=== PATIENT | male | born 2000 | race Caucasian/White ===

== ENCOUNTER 2022-08-08 00:46 | Observation (INO) ==
--- NOTE | 2022-08-08 01:14 | Emergency Department Note ---
ED Provider Note CHIEF COMPLAINT: Altered mental status from possible alcohol overdose HISTORY OF PRESENT ILLNESS: This [] patient presents to the emergency department via triage for evaluation of altered mental status, presumably from alcohol intoxication. The patient arrives through REVIEW OF SYSTEMS: Review of systems was limited secondary to patient's altered status. Review of systems was performed to the best of our ability and fully performed as the patient began returned to baseline. 10 system were ultimately reviewed and are negative unless otherwise noted. ALLERGIES: See EMR MEDICATIONS: See EMR PMH: [] SOCIAL HISTORY: [] PHYSICAL EXAM VITALS: Vitals are noted on the nurse's note and reviewed by myself. Vital signs stable. GENERAL: [], who is in no acute distress and resting comfortably. Patient is visibly altered and smells of alcohol. HEAD: Normocephalic atraumatic. EARS: External ear normal. External auditory canals clear, tympanic membranes pearly lal without erythema or effusion bilaterally. No hemotympanum EYES: Pupils equal round and reactive to light and accommodation. Conjunctivae with scant injection. EOMI intact spontaneously NOSE: Patent, turbinates without inflammation or discharge. MOUTH: Mucous membranes moist. Tonsils are not enlarged. Pharynx without erythema, blood, vomitus, or exudate. Uvula midline. Airway patent. NECK: Supple without nuchal rigidity. No lymphadenopathy. Cervical spine is nontender. HEART: Regular rate and rhythm without murmurs gallops or rubs. LUNGS: Clear to auscultation bilaterally without wheezes, rales or rhonchi. No retractions or accessory muscle use. ABDOMEN: Positive normal bowel sounds x 4. Soft, nontender, without masses or organomegaly. No guarding or rebound tenderness. MUSCULOSKELETAL: No muscle atrophy, erythema, or edema noted. Gross motor function intact to all extremities. NEURO: Patient was alert to person but not place or time. They appear with altered mental status. SKIN: The skin was without rashes, erythema, edema, or bruising. No tenting of the skin. EMERGENCY DEPARTMENT COURSE: Physical exam and history was performed. Nursing notes and EMR were reviewed. The patient appears to be altered on my examination. I suspect this is from an alcohol overdose. Conservative care measures and aspiration precautions were instituted. The patient was placed in a prone position. An order was placed for continuous cardiac monitoring. The monitor shows a rate of [] with [] rhythm. Blood work was obtained and was reviewed. The patient's blood alcohol level was []. This appears to be the primary cause of the altered status. Remaining blood work is nondiagnostic. Patient was reevaluated multiple times throughout the course of their emergency department stay. Over time the patient did sober up and was able to talk, walk, and drink fluids without difficulty. The patient was felt stable for discharge home. The patient was given alcohol intoxication handouts. The patient was discharged home in stable condition with []. Differential diagnosis: Etiologies such as alcohol intoxication, metabolic, infection, hypoglycemia, electrolyte abnormalities, cardiac sources, intracerebral event, toxicologic, neurologic, as well as others were entertained. DIAGNOSIS: Alcohol use with intoxication Past Med/Surg History Social History Smoking Status: Unknown if ever smoked Feels Safe at Home: Declines to Answer Results & Data (ED) Vital Signs Vital Signs - 24 hr 08/08/22 00:57 08/08/22 01:06 Temperature 36.5 C Temperature Source Temporal Artery Scan Pulse Rate 69 Pulse Rhythm Regular Pulse Strength Normal Respiratory Rate 12 Respiratory Effort / Characteristics Spontaneous Respiratory Depth Deep Blood Pressure 114/62 Blood Pressure Mean 79 Pulse Oximetry 97 95 Oxygen Delivery Method Room Air Room Air Sepsis Recent Fever Within 48 Hours No Sepsis New/Unexplained Change in Mental Status N/A Sepsis Action Taken by Nursing No Action Required Laboratory Data Result diagrams: 08/08/22 01:01 Discharge Plan Visit Data Chief Complaint: Alcohol Intoxication Stated Complaint: ETOH ED Provider: Hilary Miramontes ED Midlevel Provider: Tal Jennings Forms Stand Alone Forms: [facility], [facility] Referrals Referrals: PCP,NO [Primary Care Provider] -
[2022-08-08 01:27] LABS: Albumin Globulin Ratio 2.5 (0.9-2); Albumin Level 4.7 gm/dl (3.4-5.0); BUN Creatinine Ratio 20.5 (10-20); Bilirubin,Total 0.4 mg/dl (0.2-1.0); Creatinine Clr Calc Pharmacy 20.8 ml/min; Est GFR (African American) 72.2 ml/min; Est GFR (Non-African American) 62.3 ml/min; Globulin 1.9 gm/dl (2.5-4.0); Potassium 3.2 mmol/L (3.5-5.1); Total Protein 6.6 gm/dl (6.0-8.3)
[2022-08-08] MEDS ORDERED: LACTATED RINGER'S 1,000 ML IV ONE ×2 (02:15→04:30)
[2022-08-08 02:23] LABS: Basophils # (auto) 0.08 K/uL (0-0.2); Basophils % (auto) 0.9 %; Eosinophils # (auto) 0.16 K/uL (0-0.50); Eosinophils % (auto) 1.8 %; Hematocrit (blood only) 45.3 % (40.1-51.0); Hemoglobin 15.7 g/dl (14.0-18.0); Immature Granulocytes # (auto) 0.04 K/uL (0.00-0.02); Immature Granulocytes % (auto) 0.5 %; Lymphocytes # (auto) 1.77 K/uL (1.2-3.4); Mean Corpuscular Hemoglobin 29.7 pg (25.0-34.0); Mean Corpuscular Hgb Conc 34.7 g/dL (32.0-36.0); Mean Corpuscular Volume 85.8 fL (80.0-100.0); Mean Platelet Volume 11.7 fL (9.4-12.4); Monocytes % (auto) 7.9 %; Neutrophils # (auto) 6.08 K/uL (1.4-6.5); Neutrophils % (auto) 68.9 %; Platelet Count 204 K/uL (130-400); RDW Coefficient of Variation 12.4 % (11.5-14.5); RDW Standard Deviation 38.7 fL (36.4-46.3); Red Blood Count 5.28 M/uL (4.63-6.08); White Blood Count 8.83 K/ul (4.8-10.8)
--- NOTE | 2022-08-08 02:23 | Emergency Department Note ---
History of Present Illness General Chief complaint: Alcohol Intoxication Stated complaint: ETOH Time Seen by Provider: 08/08/22 00:56 History of Present Illness This is a male patient of unknown age presenting to the emergency department through triage for evaluation of altered mental status and likely alcohol i ntoxication. The patient reportedly made it to triage with friends who reported that he drank 1/5 of vodka just prior to coming to the ER. The patient had several episodes of vomiting at home and is vomiting in triage. The friends did not provide any additional information other than the patient's name before leaving. Patient himself is completely obtunded and unable to answer questions. He is essentially a "Deep [place]" at this point. There is no report of injury or trauma. Home Medications Medication Instructions Recorded Confirmed Type Unobtainable 08/08/22 08/08/22 History Allergies Allergy/AdvReac Type Severity Reaction Status Date / Time No Known Allergies Allergy Verified 08/08/22 06:19 Past Med/Surg History Medical History Medical history unknown Surgical History Surgical history unknown Social History Smoking Status: Unknown if ever smoked Hx Alcohol Use: Yes Alcohol type: hard liquor Preferred Language: Yemeni Communication Ability: Effective Cessation Systems Outreach Specialist Required: No Beliefs That Will Affect Care: None Feels Safe at Home: Yes Safety Concerns: Feels Safe At This Time Assistive Devices: None Review of Systems Unobtainable due to cognitive status Physical Exam Vital Signs Vital Signs - 24 hr 08/08/22 00:57 08/08/22 01:06 08/08/22 01:57 Temperature 36.5 C Temperature Source Temporal Artery Scan Pulse Rate 69 Pulse Rate [Finger] 90 Pulse Rhythm Regular Pulse Rhythm [Finger] Regular Pulse Strength Normal Pulse Strength [Finger] Normal Respiratory Rate 12 21 Respiratory Effort / Characteristics Spontaneous Non-Labored Spontaneous Respiratory Depth Deep Normal Blood Pressure 114/62 Blood Pressure [Left Arm] 111/51 L Blood Pressure Mean 79 Blood Pressure Mean [Left Arm] 71 Pulse Oximetry 97 95 96 Oxygen Delivery Method Room Air Room Air Room Air Sepsis Recent Fever Within 48 Hours No Sepsis New/Unexplained Change in Mental Status N/A Sepsis Action Taken by Nursing No Action Required VITALS: Vitals are noted on the nurse's note and reviewed by myself. Vital signs stable. GENERAL: Well-developed, well-nourished, white male who is completely obtunded and unable to answer any questions HEAD: Normocephalic atraumatic. EARS: External ear normal. External auditory canals clear, tympanic membranes pearly lal without erythema or effusion bilaterally. EYES: Pupils equal round and reactive to light and accommodation. Conjunctivae without injection, sclerae without icterus. NOSE: Patent, turbinates without inflammation or discharge. MOUTH: Mucous membranes moist. Tonsils are not enlarged. Pharynx without erythema, blood, or exudate. Uvula midline. Airway patent. NECK: Supple without nuchal rigidity. No lymphadenopathy. No thyromegaly. Cervical spine is nontender. HEART: Regular rate and rhythm without murmurs gallops or rubs. LUNGS: Clear to auscultation bilaterally without wheezes, rales or rhonchi. No retractions or accessory muscle use. ABDOMEN: Positive normal bowel sounds x 4. MUSCULOSKELETAL: No muscle atrophy, erythema, or edema noted. No bruising or outward signs of trauma. NEURO: Patient was obtunded and unable to answer any questions. He does not re spond to painful stimuli. Course Administered Medications Lactated Ringer's (Lr) 1,000 mls @ 100 mls/hr IV .Q10H ONE Stop: 08/08/22 14:29 Last Admin: 08/08/22 05:35 Dose: 100 mls/hr Documented By: [id number] Discontinued Medications Lactated Ringer's (Lr) 1,000 mls @ 500 mls/hr IV .Q2H ONE Stop: 08/08/22 04:14 Last Infusion: 08/08/22 05:14 Dose: 0 mls/hr Documented By: [id number] Admin: 08/08/22 02:30 Dose: 500 mls/hr Documented By: [email or web address] Thiamine HCl 100 mg/ Syringe 10 mls @ 2 mls/min IV NOW ONE Stop: 08/08/22 02:34 Last Admin: 08/08/22 02:53 Dose: 2 mls/min Documented By: [email or web address] Potassium Chloride (K Nate / Wtr) 10 meq in 100 mls @ 100 mls/hr IV Q1H IVIS; Protocol Stop: 08/08/22 04:59 Last Infusion: 08/08/22 06:42 Dose: 0 mls/hr Documented By: [id number] Admin: 08/08/22 05:35 Dose: 100 mls/hr Documented By: [id number] Infusion: 08/08/22 04:00 Dose: 100 mls/hr Documented By: [id number] Admin: 08/08/22 03:00 Dose: 100 mls/hr Documented By: NIKKY Medical Decision Making Differential Diagnosis Differential diagnosis: Etiologies such as alcohol intoxication, toxicological, infection, hypoglycemia, electrolyte abnormalities, cardiac sources, intracerebral event, neurologic, as well as others were entertained. Laboratory Data Result diagrams: 08/08/22 01:01 08/08/22 01:01 Lab Results 08/08/22 08/08/22 08/08/22 Range/Units 01:01 01:01 01:01 WBC 8.83 (4.8-10.8) K/ul RBC 5.28 (4.63-6.08) M/uL Hgb 15.7 (14.0-18.0) g/dl Hct 45.3 (40.1-51.0) % MCV 85.8 (80.0-100.0) fL MCH 29.7 (25.0-34.0) pg MCHC 34.7 (32.0-36.0) g/dL RDW Std Deviation 38.7 (36.4-46.3) fL RDW Coeff of Carmelina 12.4 (11.5-14.5) % Plt Count 204 (130-400) K/uL MPV 11.7 (9.4-12.4) fL Immature Gran % (Auto) 0.5 % Neut % (Auto) 68.9 % Lymph % (Auto) 20.0 % [place] % (Auto) 7.9 % Eos % (Auto) 1.8 % Baso % (Auto) 0.9 % Neut # (Auto) 6.08 (1.4-6.5) K/uL Lymph # (Auto) 1.77 (1.2-3.4) K/uL [place] # (Auto) 0.70 (0.24-0.82) K/uL Eos # (Auto) 0.16 (0-0.50) K/uL Baso # (Auto) 0.08 (0-0.2) K/uL Immature Gran # (Auto) 0.04 H (0.00-0.02) K/uL Sodium 135 L (136-145) mmol/L Potassium 3.2 L (3.5-5.1) mmol/L Chloride 103 (98-107) mmol/L Carbon Dioxide 20 L (21-32) mmol/L Anion Gap 12 H (3-11) BUN 17 (6-23) mg/dl Creatinine 0.83 (0.6-1.4) mg/dl Est Cr Clr Drug Dosing 20.8 ml/min Est GFR ( Amer) 72.2 ml/min Est GFR (Non-Af Amer) 62.3 ml/min BUN/Creatinine Ratio 20.5 H (10-20) Glucose 139 H (70-99(Fasting)) mg/dl Estimat Average Glucose mg/dl Hemoglobin A1c (4.5-5.6) % Calcium 9.0 (8.5-10.1) mg/dl Magnesium 2.1 (1.7-2.4) mg/dl Total Bilirubin 0.4 (0.2-1.0) mg/dl AST 19 (13-39) U/L ALT 30 (7-52) U/L Alkaline Phosphatase 98 (34-104) U/L Total Protein 6.6 (6.0-8.3) gm/dl Albumin 4.7 (3.4-5.0) gm/dl Globulin 1.9 L (2.5-4.0) gm/dl Albumin/Globulin Ratio 2.5 H (0.9-2) Ethyl Alcohol mg/dL 442.3 H (<10.0) mg/dl SARS-CoV-2, RNA, NAAT (NEGATIVE) 08/08/22 08/08/22 Range/Units 01:01 02:17 WBC (4.8-10.8) K/ul RBC (4.63-6.08) M/uL Hgb (14.0-18.0) g/dl Hct (40.1-51.0) % MCV (80.0-100.0) fL MCH (25.0-34.0) pg MCHC (32.0-36.0) g/dL RDW Std Deviation (36.4-46.3) fL RDW Coeff of Carmelina (11.5-14.5) % Plt Count (130-400) K/uL MPV (9.4-12.4) fL Immature Gran % (Auto) % Neut % (Auto) % Lymph % (Auto) % [place] % (Auto) % Eos % (Auto) % Baso % (Auto) % Neut # (Auto) (1.4-6.5) K/uL Lymph # (Auto) (1.2-3.4) K/uL [place] # (Auto) (0.24-0.82) K/uL Eos # (Auto) (0-0.50) K/uL Baso # (Auto) (0-0.2) K/uL Immature Gran # (Auto) (0.00-0.02) K/uL Sodium (136-145) mmol/L Potassium (3.5-5.1) mmol/L Chloride (98-107) mmol/L Carbon Dioxide (21-32) mmol/L Anion Gap (3-11) BUN (6-23) mg/dl Creatinine (0.6-1.4) mg/dl Est Cr Clr Drug Dosing ml/min Est GFR ( Amer) ml/min Est GFR (Non-Af Amer) ml/min BUN/Creatinine Ratio (10-20) Glucose (70-99(Fasting)) mg/dl Estimat Average Glucose 105 mg/dl Hemoglobin A1c 5.3 (4.5-5.6) % Calcium (8.5-10.1) mg/dl Magnesium (1.7-2.4) mg/dl Total Bilirubin (0.2-1.0) mg/dl AST (13-39) U/L ALT (7-52) U/L Alkaline Phosphatase (34-104) U/L Total Protein (6.0-8.3) gm/dl Albumin (3.4-5.0) gm/dl Globulin (2.5-4.0) gm/dl Albumin/Globulin Ratio (0.9-2) Ethyl Alcohol mg/dL (<10.0) mg/dl SARS-CoV-2, RNA, NAAT NEGATIVE (NEGATIVE) MDM Narrative Physical exam and history were performed. Nursing notes, EMR, and Medication List were personally reviewed. Patient appears to have altered mental status on presentation. History is significantly limited secondary to the patient's status. He was vomiting actively in triage, and there was report of alcohol use tonight. IV access was established and labs were obtained. Patient was cared for under aspiration pr ecautions. Patient's blood work is as above and was reviewed. He does not have a significantly elevated white blood cell count. He is slightly hypokalemic and hyperglycemic. His alcohol is significantly elevated at 442, which is likely the cause of his altered mental status. Out of concern for the patient's wellbeing the case was discussed with the on- call hospitalist team. Please see their dictation for further patient course, plan, and disposition. The chart was completed utilizing [employer] Speech Voice Recognition Software. Grammatical errors, random word insertions, pronoun errors, and incomplete sentences are an occasional consequence of this system due to software limitations, ambient noise, and hardware issues. Any formal questions or concerns about the content, text, or information contained within the body of this dictation should be directly addressed to the provider for clarification. . Impression & Plan Altered mental status, Alcohol use with intoxication, Vomiting, Hyperglycemia Discharge Plan Visit Data Chief Complaint: Alcohol Intoxication Stated Complaint: ETOH ED Provider: Hilary Miramontes ED Midlevel Provider: Tal Jennings Discharge Problem: Altered mental status, Alcohol use with intoxication, Vomiting, Hyperglycemia Patient Disposition: Admitted As Inpatient
[2022-08-08 02:28] LABS: Magnesium 2.1 mg/dl (1.7-2.4)
[2022-08-08] MEDS ORDERED: THIAMINE HCL 100 MG in SYRINGE 9 ML IV ONE (02:30)
--- NOTE | 2022-08-08 02:38 | History & Physical Report ---
Date of Service August 08, 2022 Assessment & Plan (1) Alcohol intoxication: Plan: Hypokalemia secondary to emesis Hyperglycemia rule out DM Medical telemetry IVF Replace potassium recheck blood alcohol level Monitor patient until sober Obtain patient demographics and evaluate for alcohol use disorder once patient awake Check hemoglobin A1c DVT prophylaxis. SCDs Full code Text document was generated using [employer] voice recognition software. It may contain grammatical or spelling errors. Kindly contact undersigned for clarification of any documentation item in question. History of Present Illness Chief Complaint: Alcohol intoxication Primary Care Provider: NO PCP History obtained from ER provider and records. Unable to obtain history from patient secondary to obtunded state. Patient brought by friends to the ER for alcohol intoxication. Patient reportedly vomiting upon arrival at the ER. Patient currently obtunded. Medical History as above Surgical History/Family History/Personal/Social history : Could not be obtained secondary to obtunded state Allergies Allergy/AdvReac Type Severity Reaction Status Date / Time Unable to Assess Allergy Unverified 08/08/22 02:36 Home Medications Medication Instructions Recorded Confirmed Type Unobtainable 08/08/22 08/08/22 History Past Med/Surg History Medical History Medical history unknown Surgical History Surgical history unknown Social History Smoking Status: Unknown if ever smoked Feels Safe at Home: Declines to Answer Review of Systems Review of Systems: Could not be reliably obtained secondary to intoxicated state Physical Exam Physical Exam: GENERAL: Obtunded, prone position SKIN: Normal color, warm HEENT: [place] palpebral conjunctivae, no ptosis, dry buccal mucosa NECK : Supple, no tenderness CHEST : CTA, no tenderness HEART : RRR, no obvious murmurs ABDOMEN: no distention, nontender EXTREMITIES : No LE swelling/tenderness, no other conspicuous deformities noted NEUROLOGIC : Obtunded, no facial asymmetry, gait and stance not assessed Results & Data Results & Data ([facility]) Vital Signs (Past 12 Hours) Vital Signs Temp Pulse Pulse Resp BP BP Pulse Ox 08/08/22 01:57 90 21 111/51 L 96 08/08/22 01:06 95 08/08/22 00:57 36.5 C 69 12 114/62 97 O2 Del Method 08/08/22 01:57 Room Air 08/08/22 01:06 Room Air 08/08/22 00:57 Room Air Laboratory Results Laboratory Results WBC 8.83 K/ul (4.8-10.8) 08/08/22 01:01 RBC 5.28 M/uL (4.63-6.08) 08/08/22 01:01 Hgb 15.7 g/dl (14.0-18.0) 08/08/22 01:01 Hct 45.3 % (40.1-51.0) 08/08/22 01:01 MCV 85.8 fL (80.0-100.0) 08/08/22 01:01 MCH 29.7 pg (25.0-34.0) 08/08/22 01:01 MCHC 34.7 g/dL (32.0-36.0) 08/08/22 01:01 RDW Std Deviation 38.7 fL (36.4-46.3) 08/08/22 01:01 RDW Coeff of Carmelina 12.4 % (11.5-14.5) 08/08/22 01:01 Plt Count 204 K/uL (130-400) 08/08/22 01:01 MPV 11.7 fL (9.4-12.4) 08/08/22 01:01 Immature Gran % (Auto) 0.5 % 08/08/22 01:01 Neut % (Auto) 68.9 % 08/08/22 01:01 Lymph % (Auto) 20.0 % 08/08/22 01:01 [place] % (Auto) 7.9 % 08/08/22 01:01 Eos % (Auto) 1.8 % 08/08/22 01:01 Baso % (Auto) 0.9 % 08/08/22 01:01 Neut # (Auto) 6.08 K/uL (1.4-6.5) 08/08/22 01:01 Lymph # (Auto) 1.77 K/uL (1.2-3.4) 08/08/22 01:01 [place] # (Auto) 0.70 K/uL (0.24-0.82) 08/08/22 01:01 Eos # (Auto) 0.16 K/uL (0-0.50) 08/08/22 01:01 Baso # (Auto) 0.08 K/uL (0-0.2) 08/08/22 01:01 Immature Gran # (Auto) 0.04 K/uL (0.00-0.02) H 08/08/22 01:01 Sodium 135 mmol/L (136-145) L 08/08/22 01:01 Potassium 3.2 mmol/L (3.5-5.1) L 08/08/22 01:01 Chloride 103 mmol/L (98-107) 08/08/22 01:01 Carbon Dioxide 20 mmol/L (21-32) L 08/08/22 01:01 Anion Gap 12 (3-11) H 08/08/22 01:01 BUN 17 mg/dl (6-23) 08/08/22 01:01 Creatinine 0.83 mg/dl (0.6-1.4) 08/08/22 01:01 Est Cr Clr Drug Dosing 20.8 ml/min 08/08/22 01:01 Est GFR ( Amer) 72.2 ml/min 08/08/22 01:01 Est GFR (Non-Af Amer) 62.3 ml/min 08/08/22 01:01 BUN/Creatinine Ratio 20.5 (10-20) H 08/08/22 01:01 Glucose 139 mg/dl (70-99(Fasting)) H 08/08/22 01:01 Calcium 9.0 mg/dl (8.5-10.1) 08/08/22 01:01 Magnesium 2.1 mg/dl (1.7-2.4) 08/08/22 01:01 Total Bilirubin 0.4 mg/dl (0.2-1.0) 08/08/22 01:01 AST 19 U/L (13-39) 08/08/22 01:01 ALT 30 U/L (7-52) 08/08/22 01:01 Alkaline Phosphatase 98 U/L (34-104) 08/08/22 01:01 Total Protein 6.6 gm/dl (6.0-8.3) 08/08/22 01:01 Albumin 4.7 gm/dl (3.4-5.0) 08/08/22 01:01 Globulin 1.9 gm/dl (2.5-4.0) L 08/08/22 01:01 Albumin/Globulin Ratio 2.5 (0.9-2) H 08/08/22 01:01 Ethyl Alcohol mg/dL 442.3 mg/dl (<10.0) H 08/08/22 01:01
[2022-08-08] MEDS ORDERED: PROMETHAZINE HCL 6.25 MG in SODIUM CHLORIDE 0.9% 50 ML IV PRN (02:42)
[2022-08-08] MEDS: POTASSIUM CHLORIDE / WTR 10 MEQ/100 ML PLCT IV SCH ×2 (03:00→05:35)
[2022-08-08] MEDS ORDERED: ACETAMINOPHEN 325 MG TAB PO PRN (05:08)
[2022-08-08 07:11] LABS: Estimated Average Glucose 105 mg/dl; Hemoglobin A1C 5.3 % (4.5-5.6)
[2022-08-08 08:33] LABS: Base Excess VBG 0.1 mEq/L; HCO3 VBG 26 mmol/L; Oxygen Saturation VBG 72.3 %; PCO2 VBG 46 mmHg (38-50); PO2 VBG 45 mmHg; pH VBG 7.36 (7.36-7.41)
--- NOTE | 2022-08-08 08:48 | Discharge Summary ---
Discharge Summary Date of Service August 08, 2022 Admission HPI Per Admitting Provider History obtained from ER provider and records. Unable to obtain history from patient secondary to obtunded state. Patient brought by friends to the ER for alcohol intoxication. Patient reportedly vomiting upon arrival at the ER. Patient currently obtunded. Medical History as above Surgical History/Family History/Personal/Social history : Could not be obtained secondary to obtunded state Admission Exam Per Admitting Provider GENERAL: Obtunded, prone position SKIN: Normal color, warm HEENT: [place] palpebral conjunctivae, no ptosis, dry buccal mucosa NECK : Supple, no tenderness CHEST : CTA, no tenderness HEART : RRR, no obvious murmurs ABDOMEN: no distention, nontender EXTREMITIES : No LE swelling/tenderness, no other conspicuous deformities noted NEUROLOGIC : Obtunded, no facial asymmetry, gait and stance not assessed Principal Dx & Hospital Course #1 = Principal Diagnosis (1) Alcohol use with intoxication: Patient was brought into the ER by friends for alcohol intoxication and altered mental status. Alcohol level 442 -> downtrended to 267. This morning patient is back to baseline alert and oriented, appropriate for discharge home. (2) Altered mental status: Secondary to the above, since resolved and patient alert and oriented on discharge. (3) Hyperglycemia: Noted on admission lab work to have a BSG of 139. A1c 5.3%. (4) Hypokalemia: Mildly hypokalemic on admission to 3.2, repleted overnight and patient's potassium 4.0 on day of discharge. Plan Disposition: Home with self-care Discharge Exam Constitutional WD/WN, vitals as above Respiratory normal respiratory effort, lungs clear to auscultation Cardiovascular RRR, no murmur, no edema Gastrointestinal (Abdomen) normal bowel sounds, soft, nontender, no hepatosplenomegaly Skin no rashes, warm and dry Psychiatric A+Ox3, euthymic affect Updated Medication List Medication Instructions Recorded Confirmed Type Unobtainable 08/08/22 08/08/22 History Hospital Stay Data Consultations 08/08/22 02:12 ED Decision to Admit Stat Discharge Instructions Given to Patient (Per Discharging Provider) You were admitted to the hospital for evaluation and monitoring of alcohol intoxication. While you were admitted you were found to have a mild elevation in your blood sugar, and a mildly low potassium you were given potassium supplement in order to fix this low potassium level. We checked an A1c to make sure he did not have diabetes, and this was normal. Once you are awake and alert, you have felt to be safe for discharge home. Please follow-up with your primary care provider with regard to your admission to the hospital. If you have any chest pain, shortness of breath, or other concerning symptoms, please be evaluated urgently by medical provider Total Time Total Time Spent Total Time Spent (In Minutes): 35 minutes Coding Level of Care Code D/C DAY MANAGEMENT >30 MINS Diagnoses Alcohol use with intoxication F10.929 Altered mental status R41.82 Hyperglycemia R73.9 Hypokalemia E87.6
[2022-08-08 08:55] LABS: Anion Gap 10 (3-11); BUN Creatinine Ratio 15.2 (10-20); Blood Urea Nitrogen 12 mg/dl (6-23); Carbon Dioxide 24 mmol/L (21-32); Chloride 108 mmol/L (98-107); Creatinine Clr Calc Pharmacy 167.8 ml/min; Est GFR (African American) > 150.0 ml/min; Est GFR (Non-African American) 130.2 ml/min; Glucose 106 mg/dl (70-99(Fasting)); Sodium 142 mmol/L (136-145)
[2022-08-09] MEDS ORDERED: THIAMINE HCL 100 MG TAB PO SCH (09:00)
== END 2022-08-08 13:02 | disposition home or self-care (01) | DRG 897 ==
LOC: ED 00:46 → EDBD 00:46 → 2N 02:40 → INTOOBSV 02:40 → SUATTDRO 02:40 → 2N 09:45
DX: R73.9 Hyperglycemia, unspecified; Z20.822 Contact with and (suspected) exposure to COVID-19; F10.929 Alcohol use, unspecified with intoxication, unspecified; E87.6 Hypokalemia; Y90.8 Blood alcohol level of 240 mg/100 ml or more